=== PATIENT | male | born 1985 | race African-American/Black ===

== ENCOUNTER 2021-01-24 12:00 | Emergency (ER) | payer OTHER ==
[2021-01-24] MEDS ORDERED: Tranexamic Acid 1,000 MG/10 ML VIAL ONE (12:59)
== END 2021-01-24 15:45 | disposition home or self-care (01) ==
LOC: EEVIPCON 12:00 → ERS 12:00
DX: T78.3XXA Angioneurotic edema, initial encounter (principal); T46.4X5A Adverse effect of angiotensin-converting-enzyme inhibitors, initial encounter; I10 Essential (primary) hypertension; Z79.899 Other long term (current) drug therapy
CPT/HCPCS: 96365